=== PATIENT | female | born 2000 | race Caucasian/White ===

== ENCOUNTER → 2018-10-31 | Outpatient (CLI) | payer OTHER | LOC: FIMAGING 19:06 | PROVIDERS: ATTEND Physician Assistant Medical | DX: M62.838 Other muscle spasm (principal) | CPT/HCPCS: 70551-PN ==

== ENCOUNTER → 2018-11-01 | Outpatient (CLI) | payer OTHER ==
--- NOTE | 2018-11-02 07:07 | CPEEG ---
[f rep st] ELECTROENCEPHALOGRAM DATE OF STUDY: 11/01/2018 DATE OF INTERPRETATION: 11/01/2018. INTERPRETATION: Normal EEG during wakefulness and sleep. There were no potentially epileptogenic ab normalities present during the recording. REPORT: This EEG contains 10 Hz alpha activity to the posterior head regions. The background activi ty was normal and symmetric. There was no abnormal activation at rest, during photic stimulation or hyperventilation. The patient did have a normal hyperventilation buildup response. The patient adria me drowsy and fell asleep during the study. There was no abnormal activation during drowsiness, slee p, or during times of arousal. /[id number]/MODL
== END ==
LOC: FCPNEURO 14:08
PROVIDERS: ATTEND Physician Assistant Medical
DX: M62.838 Other muscle spasm (principal)